=== PATIENT | male | born 1960 ===

== ENCOUNTER 2018-01-28 11:34 | Outpatient (CLI) | payer BC ==
--- NOTE | 2018-01-28 13:56 | XRay Report ---
XRAY CHEST TWO VIEWS: 01/28/18 11:34:00 CLINICAL: Cough. COMPARISON: None FINDINGS: Normal heart and pulmonary vasculature. The lungs are normally expanded and clear.Scoliosis and mild degenerative changes in the spine. IMPRESSION: Negative.No CHF or pneumonia.
== END 2018-01-28 11:35 | disposition home or self-care (01) ==
LOC: SPVIMAG 11:34
PROVIDERS: ATTEND Family Medicine Adult Medicine
DX: J40 Bronchitis, not specified as acute or chronic (principal); M41.84 Other forms of scoliosis, thoracic region; M47.894 Other spondylosis, thoracic region; R05 Cough
CPT/HCPCS: 71046